=== PATIENT | male | born 1975 | race Caucasian/White ===

== ENCOUNTER 2022-03-31 20:23 | Emergency (ER) | payer BC ==
[2022-03-31] MEDS ORDERED: Ketorolac 30 MG/ML SDV IVPUSH ONE (20:59)
[2022-03-31] MEDS ORDERED: Sodium Chloride 0.9% 1,000 ML IV SCH (21:00)
[2022-03-31 21:17] LABS: ESTIMATED GFR 76 mL/min (>60)
[2022-03-31] MEDS ORDERED: Ketorolac 30 MG/ML SDV IM STA (21:51)
== END 2022-03-31 22:38 | disposition home or self-care (01) ==
LOC: FB.ED 20:23
DX: U07.1 COVID-19 (principal); F17.210 Nicotine dependence, cigarettes, uncomplicated
CPT/HCPCS: 36415; 71045; 80048; 85025; 96361; 96374; 99284-25; J1885; J7030; U0002

== ENCOUNTER 2023-09-22 19:12 | Emergency (ER) | payer BC ==
[2023-09-22] MEDS ORDERED: Gentamicin 0.3% Ophth Soln 5 ML Bottle EYEBOTH ONE (19:13)
== END 2023-09-22 20:23 | disposition home or self-care (01) ==
LOC: FB.ED 19:12
DX: H10.31 Unspecified acute conjunctivitis, right eye (principal); Z88.5 Allergy status to narcotic agent
CPT/HCPCS: 99282; A9270